=== PATIENT | male | born 1975 | race Caucasian/White ===

== ENCOUNTER 2020-11-27 14:06 | Emergency (ER) | payer OTHER ==
[~2020-11-27] VITALS: Ht 182.9 cm; Wt 83.9 kg
[2020-11-27] MEDS ORDERED: AMOXICILLIN 50500 MG PO (14:17)
[2020-11-27] MEDS ORDERED: MOBIC7.5 MG PO (16:24)
[2020-11-27] MEDS ORDERED: DOXYCYCLINE 10100 MG PO (16:25)
[2020-11-27 18:53] VITALS: BP 119/67
== END 2020-11-27 18:55 | disposition home or self-care (01) ==
LOC: ER 14:06
DX: T81.30XA Disruption of wound, unspecified, initial encounter (principal); M79.602 Pain in left arm; F12.90 Cannabis use, unspecified, uncomplicated; Z79.899 Other long term (current) drug therapy